=== PATIENT | male | born 1975 ===

== ENCOUNTER 2018-01-15 20:15 | Emergency (ER) | payer SELFPAY ==
[2018-01-15 20:39] VITALS: BP 134/88; PULSE 95; TEMP 97.6; O2SAT 99
[2018-01-15] MEDS ORDERED: Bacitracin 500 Units/gm Oint Foilpak UD TOP ONE (21:06)
[2018-01-15] MEDS ORDERED: Lidocaine 2% Inj (20ml) INFIL ONE (21:06)
[2018-01-15] MEDS ORDERED: Tdap Vaccine 0.5 ml Vial (10-64 yrs) IM ONE ×2 (21:07→22:15)
[2018-01-15] MEDS ORDERED: Lidocaine 2% Inj (20ml) ONE (21:23)
[2018-01-15] MEDS ORDERED: Tmp-Smz 800 mg-160 mg DS Tab PO STA (21:58)
--- NOTE | 2018-01-15 21:58 | C.PDOC ---
History Of Present Illness 42 year old male present to the ED for evaluation after sustaining a splinter to his right 2nd digit while moving wood earlier today. Patient states he attempted to remove the splinter with a needle unsuccessfully. Patient reports he feels like the splint has gone from his fingertip to his nail. Patient denies any other injuries, active bleeding or change in sensation. 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 Time Seen by Provider: 01/15/18 20:49 Chief Complaint (Nursing): Finger,Hand,&Wrist History Per: Patient History/Exam Limitations: no limitations Onset/Duration Of Symptoms: Hrs Current Symptoms Are (Timing): Still Present Quality: "Pain" Additional History Per: Patient Past Medical History Reviewed: Historical Data, Nursing Documentation, Vital Signs Vital Signs: Last Vital Signs Temp 97.6 F 01/15/18 20:37 Pulse 95 H 01/15/18 20:37 Resp 20 01/15/18 22:39 BP 134/88 01/15/18 20:37 Pulse Ox 99 01/16/18 03:57 - Medical History PMH: No Chronic Diseases Surgical History: No Surg Hx Family History: States: Unknown Family Hx - Social History Hx Alcohol Use: No Hx Substance Use: No - Immunization History Hx Tetanus Toxoid Vaccination: No Hx Influenza Vaccination: No Hx Pneumococcal Vaccination: No Review Of Systems Skin: Positive for: Other (splinter in right 2nd digit ) Neurological: Negative for: Weakness, Numbness Physical Exam - Physical Exam Appears: Non-toxic, No Acute Distress Skin: Warm, Dry, Other (superficial abrasion to fingertip pad of right 2nd digit secondary to pts needle dissection) Head: Atraumatic, Normacephalic Eye(s): bilateral: Normal Inspection, EOMI Nose: Normal Oral Mucosa: Moist Neck: Normal ROM, Supple Chest: Symmetrical Respiratory: No Accessory Muscle Use Extremity: Normal ROM, Tenderness (to 2nd right finger tip), Capillary Refill ( less than 2 seconds ), Other ((+) partial amputation of right 5th digit) Extremity: Bilateral: Normal Color And Temperature, Normal ROM Pulses: Left Radial: Normal, Right Radial: Normal Neurological/Psych: Oriented x3, Normal Speech, Normal Cognition, Normal Sensation ED Course And Treatment O2 Sat by Pulse Oximetry: 99 (on RA) Pulse Ox Interpretation: Normal Progress Note: Right hand 2nd digit XR ordered. Results show no visible foreign body. Tetanus IM, Bacitracin TOP, Bactrim PO, Keflex PO, Motrin PO, and Lidocaine administered. Patient was evaluated by Dr. Quintero, who advises to treat with antibiotics and instruct patient to f/u with hand surgeon. PT was informed of FB seen on 4th digit- pt notes likekly secondary to his previous injury. Notes no pain or discomfort. Patient is advised to f/u with hand surgeon within 1-2 days for further evaluation and/or return to the ED if symptoms persist or worsen. Disposition - Disposition Referrals: John Petty MD [Staff Provider] - Disposition: HOME/ ROUTINE Disposition Time: 21:56 Condition: STABLE Additional Instructions: Follow up with referral physician in 1-2 days without fail for further evaluation. Take medications as prescribed. Return to the emergency department at any time if symptoms persist or worsen. Prescriptions: Cephalexin [cephalexin] 500 mg PO BID #14 cap Sulfamethoxazole/Trimethoprim [Bactrim DS 800 mg-160 mg] 1 tab PO BID #14 tab Instructions: Foreign Body in Skin (DC) Forms: Advaction (French) - Clinical Impression Clinical Impression: Foreign body finger - PA / TANDEM [employer]ICKER / Resident Statement MD/DO has reviewed & agrees with the documentation as recorded. - Scribe Statement The provider has reviewed the documentation as recorded by the Scribe (Ebony Cavazos) All medical record entries made by the Scribe were at my direction and personally dictated by me. I have reviewed the chart and agree that the record accurately reflects my personal performance of the history, physical exam, medical decision making, and the department course for this patient. I have also personally directed, reviewed, and agree with the discharge instructions and disposition.
[2018-01-15] MEDS ORDERED: Bacitracin 500 Units/gm Oint Foilpak UD ONE (22:10)
[2018-01-15] MEDS ORDERED: Tmp-Smz 800 mg-160 mg DS Tab ONE (22:15)
[2018-01-15 22:42] VITALS: RESP 20
--- NOTE | 2018-01-16 09:08 | RAD ---
PROCEDURE: Right Index finger radiographs. HISTORY: fb r/o COMPARISON: None. TECHNIQUE: AP radiograph of the right hand, as well as spot oblique and lateral images of index finger were obtained. FINDINGS: RIGHT INDEX FINGER: Normal right index finger, without fracture or focal lesion or foreign body Remainder of the right hand notable for multiple soft tissue foreign bodies ulnar side 4th digit-proximal interphalangeal joint level. Slight deformity compatible with old healed fracture deformity metacarpal. 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 JOINTS: As above SOFT TISSUES: As above OTHER FINDINGS: None. IMPRESSION: Normal right index finger radiographs. No radiopaque foreign body here noted -the current area of interest Other digits with pathology as noted above
== END 2018-01-15 22:39 | disposition home or self-care (01) ==
LOC: C.ER 20:15
DX: S60.450A Superficial foreign body of right index finger, initial encounter (principal); W45.8XXA Other foreign body or object entering through skin, initial encounter; Z23 Encounter for immunization